=== PATIENT | female | born 1965 | race Caucasian/White ===

== ENCOUNTER 2018-01-23 04:29 | Inpatient (IN) | payer OTHER, MEDICARE ==
[~2018-01-23] VITALS: Ht 165.1 cm; Wt 87.7 kg
[~2018-01-23 04:29] MED LIST: HYDR-3129 PO; IMIT25TA PO; LISI-363 PO; METH5SOL3 PO; NAPR250T57 PO; ZOLO50TA PO
[2018-01-23 04:55] VITALS: BP 125/75; PULSE 70; RESP 18; O2SAT 99
[2018-01-23] MEDS ORDERED: ALPR.5 PO (07:33)
[2018-01-23] MEDS ORDERED: PERC10TA27 PO (07:33)
[2018-01-23] MEDS ORDERED: METH10TA PO (07:33)
[2018-01-23] MEDS ORDERED: FLUT50SP EACH NARE (07:35)
[2018-01-23] MEDS ORDERED: PROM12.54 PO (07:36)
[2018-01-23] MEDS ORDERED: LISI-515 PO (07:37)
[2018-01-23] MEDS ORDERED: NAPR500T2 PO (07:37)
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
[2018-01-23] MEDS: FLUTICASONE PROPIONATE 50 MCG/ACT 16 GM NASAL SPRAY EACH NARE SCH ×2 (09:39→20:22)
[2018-01-23] MEDS ORDERED: METHADONE HCL 10 MG TAB PO SCH (10:00)
--- NOTE | 2018-01-23 11:30 | PD.CONS ---
HPI Service [facility] Hospitalists Consult Requested By Reason for Consult Medical management, pain management Primary Care Physician Unknown Diagnoses: History of Present Illness 52-year-old female who presented to [facility] ER under [facility] act due to increased depression and plans of overdosing with pills. Chart reviewed, according to [facility] documentation patient had been taking methadone from 4811-0530, gradually weaned down from 40 mg to 10 mg. She has a past medical history of chronic back pain, knee pain, and RLS for which she has taken oxycodone and methadone in the past. Patient verbalized to ED providers at [facility] that she had "stockpiled a large amount of this medication and will use it to overdose if she is not given help". Patient reported to [facility] providers that she would not be willing to deal with life if she could not get methadone since this is only thing that helps her restless legs. Patient was cleared medically and transferred to [place] for further psychiatric evaluation. [facility] has been consulted to assist with medical management and pain management. Her methadone has been restarted by the attending psychiatrist. Patient it seen and examined in her room resting comfortably in bed in no acute distress. She is awake and alert and complains of allergies and a stuffy nose. She denies any fevers, chills, N/V/D, headache, dizziness, SOB, cough, or chest pain. She reports that she has not been in to see a doctor in some time. She reports having a spinal cord stimulator in place , was following with neurosurgery, but it has been years since she has followed up. She is able to provide me with her PMH, unsure how reliable she is. Review of Systems Except as stated in HPI: all other systems reviewed are Neg Past Family Social History Allergies: Coded Allergies: cephalexin (Unverified Allergy, Intermediate, BLOOD BLISTERS, 04/06/17) NSAIDS (Non-Steroidal Anti-Inflamma (Unverified Allergy, Unknown, 01/23/18) Past Medical History Degenerative disc disease Spinal stenosis Fibromyalgia Arthritis "all over" Chronic back pain RLS HTN HLD Past Surgical History Spinal cord stimulator 2007 Left elbow surgery bunion removal x2 Hysterectomy Reported Medications Reported Meds & Active Scripts Active Reported Lisinopril 20 Mg Tab 20 Mg PO DAILY Naproxen 500 Mg Tab 500 Mg PO BID Promethazine (Promethazine HCl) 12.5 Mg Tab 25 Mg PO Q6HR PRN Fluticasone Nasal [place] 50 Mcg/Act Naspr 50 Mcg EACH NARE BID 50 mcg/spray Xanax (Alprazolam) 0.5 Mg Tab 0.5 Mg PO HS Methadone (Methadone HCl) 10 Mg Tab 20 Mg PO DAILY Percocet (Oxycodone-Acetaminophen) 10-325 mg Tab 1-2 Tab PO Q6H PRN Active Ordered Medications Current Medications Medications (Trade) Dose Ordered Sig/[place] Route Start Time Stop Time Status Last Admin (Flonase [place] Spr) 1 spray BID EACH NARE 01/23/18 10:00 (Prinivil) 20 mg DAILY PO 01/24/18 09:00 (Dolophine) 20 mg DAILY PO 01/23/18 10:00 01/23/18 09:39 (Naprosyn) 500 mg BID PO 01/23/18 21:00 (Atarax) 50 mg Q6H PRN PO 01/23/18 12:30 (Benadryl) 50 mg HS PRN PO 01/23/18 12:30 (Benadryl Inj) 50 mg HS PRN IM 01/23/18 12:30 (Tylenol) 650 mg Q4H PRN PO 01/23/18 12:30 (Milk Of Magnesia Liq) 30 ml DAILY PRN PO 01/23/18 12:30 (Mag-Al Plus Susp Liq) 30 ml Q6H PRN PO 01/23/18 12:30 (Habitrol 21 Mg Patch.24 Hr) 1 patch DAILY T-DERMAL 01/23/18 13:00 Miscellaneous Information 1 HS T-DERMAL 01/23/18 21:00 Family History Mother: Renal cancer Social History Denies any tobacco or illicit drug use Alcohol: socially Physical Exam Vital Signs Vital Signs Date Time Temp Pulse Resp B/P (MAP) Pulse Ox O2 Delivery O2 Flow Rate FiO2 01/23/18 04:55 70 18 125/75 (92) 99 Physical Exam GENERAL: This is a well-nourished, well-developed patient, in NAD, tearful at one point. SKIN: No rashes, ecchymoses or lesions. Cool and dry. HEAD: Atraumatic. Normocephalic. EYES: Pupils equal round. Extraocular motions intact. No scleral icterus. No injection or drainage. ENT: Nose without bleeding. Throat without erythema. Airway patent. NECK: Trachea midline. No JVD. Supple. CARDIOVASCULAR: Regular rate and rhythm without murmurs, gallops, or rubs. RESPIRATORY: Clear to auscultation. Breath sounds equal bilaterally. No wheezes , rales, or rhonchi. GASTROINTESTINAL: Abdomen soft, non-tender, nondistended. No palpable masses. No guarding. MUSCULOSKELETAL: Extremities without clubbing, cyanosis, or edema. No joint tenderness, effusion, or edema noted. Sits up on bed with no assistance or hesitancy. NEUROLOGICAL: Awake and alert. Cranial nerves grossly intact. Motor and sensory grossly within normal limits. Five out of 5 muscle strength in all muscle groups. Normal speech. Assessment and Plan Assessment and Plan 52-year-old female BA after making statements that including OD on Rx medications. Seen and evaluated at [facility], cleared medically and brought to [place] for further psychiatric evaluation. Reports PMH significant for HTN, HLD, DDD, spinal stenosis, fibromyalgia, arthritis, RLS, and implanted spinal cord stimulator. Adjustment disorder - Treatment per psych HTN, controlled HLD - [place] medical records reviewed, Labs from 12/23 reviewed CBC unremarkable, slight leukocytosis at 11.3, likely stress-induced. CMP unremarkable - Continue lisinopril Chronic pain DDD OA - Methadone was continued by psychiatrist. Continue Naproxen BID. - Patient reports not seeing a doctor for sometime, unable to provide name of prescribing MD for pain medications. - She has also collected a large amount of these medications, would not DC on any pain medications. - Toxicology screen positive for methadone and cannabis, at [facility]. DVT prophylaxis-ambulation Discussed with nursing staff. Thank you for this consultation, will continue to follow along. Likely sign off tomorrow unless there are are other issues that arise. patient was seen and examined today. complaining of some back pain. started on Methadone by psych. d/w the RN and no acute issues reported. assessment and plan as noted above. Gracy Almaguer Jan 23, 2018 11:30 Anni Talavera MD Jan 23, 2018 15:04
[2018-01-23] MEDS ORDERED: ALBUTEROL SULFATE 90 MCG/ACT HFA 8 GM INHALER INH PRN (11:45)
[2018-01-23] MEDS ORDERED: diphenhydrAMINE HCL 50 MG CAP - HS PRN PO (12:30)
[2018-01-23] MEDS ORDERED: ACETAMINOPHEN 325 MG TAB PO PRN (12:30)
[2018-01-23] MEDS ORDERED: MAGNESIUM HYDROXIDE SUSP 30 ML CUP PO PRN (12:30)
[2018-01-23] MEDS ORDERED: diphenhydrAMINE HCL 50 MG/ML VIAL - HS PRN IM (12:30)
[2018-01-23] MEDS ORDERED: hydrOXYzine HCL 50 MG TAB PO PRN (12:30)
[2018-01-23] MEDS ORDERED: ALUMINUM/MAGNESIUM/SIMETH 30 ML CUP PO PRN (12:30)
[2018-01-23] MEDS: NICOTINE 21 MG/24 HR PATCH T-DERMAL SCH (12:46)
[2018-01-23 16:00] VITALS: BP 125/75; PULSE 70; RESP 18; TEMP 98.6; O2SAT 99
[2018-01-23] MEDS: NAPROXEN 500 MG TAB PO SCH (20:21)
[2018-01-23] MEDS: REMOVE OLD NICOTINE PATCH T-DERMAL SCH (20:23)
[2018-01-24 06:30] VITALS: BP 136/78; PULSE 54; RESP 17; TEMP 97.6; O2SAT 97
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
[2018-01-24] MEDS: LISINOPRIL 20 MG TAB PO SCH (08:36)
[2018-01-24] MEDS: NAPROXEN 500 MG TAB PO SCH ×2 (08:36→20:41)
[2018-01-24] MEDS: FLUTICASONE PROPIONATE 50 MCG/ACT 16 GM NASAL SPRAY EACH NARE SCH ×2 (08:36→20:41)
[2018-01-24] MEDS: NICOTINE 21 MG/24 HR PATCH T-DERMAL SCH (09:00)
[2018-01-24] MEDS: METHADONE HCL 10 MG TAB PO SCH (09:00)
[2018-01-24] MEDS: SERTRALINE HCL 50 MG TAB PO SCH (09:19)
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
[2018-01-24 18:16] VITALS: BP 113/62; PULSE 58; RESP 16; TEMP 98; O2SAT 95
[2018-01-24] MEDS: REMOVE OLD NICOTINE PATCH T-DERMAL SCH (20:42)
[2018-01-25] MEDS: SERTRALINE HCL 50 MG TAB PO SCH (08:43)
[2018-01-25] MEDS: NAPROXEN 500 MG TAB PO SCH (08:43)
[2018-01-25] MEDS: LISINOPRIL 20 MG TAB PO SCH (08:43)
[2018-01-25] MEDS: FLUTICASONE PROPIONATE 50 MCG/ACT 16 GM NASAL SPRAY EACH NARE SCH (08:44)
[2018-01-25] MEDS: METHADONE HCL 10 MG TAB PO SCH (08:44)
[2018-01-25] MEDS: NICOTINE 21 MG/24 HR PATCH T-DERMAL SCH (08:44)
[2018-01-25 09:12] LABS: ALBUMIN 4.1 GM/DL (3.4-5.0); AST (GOT) 18 U/L (15-37); BICARBONATE 24.6 MEQ/L (21.0-32.0); BLOOD UREA NITROGEN 13 MG/DL (7-18); CALCIUM 10.7 MG/DL (8.5-10.1); CHLORIDE 107 MEQ/L (98-107); CREATININE 0.72 MG/DL (0.50-1.00); GLOMERULAR FILTRATION RATE 85 ML/MIN (>89); GLUCOSE,RANDOM 104 MG/DL (74-106); SODIUM (NA) 141 MEQ/L (136-145)
[2018-01-25 09:13] LABS: ALT (GPT) 29 U/L (10-53); CHOLESTEROL 240 MG/DL (120-200)
[2018-01-25 09:17] LABS: AUTOMATED NEUTROPHIL # 3.5 TH/MM3 (1.8-7.7); BASOPHIL % 0.6 % (0.0-2.0); EOSINOPHIL # 0.1 TH/MM3 (0-0.4); EOSINOPHIL % 1.5 % (0.0-4.0); HEMATOCRIT 40.3 % (35.0-46.0); HEMOGLOBIN 13.5 GM/DL (11.6-15.3); LYMPH % 40.1 % (9.0-44.0); LYMPHOCYTE # 2.8 TH/MM3 (1.0-4.8); MEAN CORPUSCULAR HEMOGLOBIN 28.6 PG (27.0-34.0); MEAN CORPUSCULAR HGB CONC 33.6 % (32.0-36.0); MEAN PLATELET VOLUME 7.9 FL (7.0-11.0); MONO % 7.9 % (0.0-8.0); MONOCYTE # 0.6 TH/MM3 (0-0.9); NEUT % 49.9 % (16.0-70.0); PLATELET COUNT 224 TH/MM3 (150-450); RED BLOOD COUNT 4.74 MIL/MM3 (4.00-5.30); RED CELL DISTRIBUTION WIDTH 12.6 % (11.6-17.2); WHITE BLOOD COUNT 7.1 TH/MM3 (4.0-11.0)
[2018-01-25 09:23] LABS: ALKALINE PHOSPHATASE 158 U/L (45-117); CHOLESTEROL/ HDL RATIO 2.98 RATIO; HDL CHOLESTEROL 80.3 MG/DL (40.0-60.0); LDL CHOLESTEROL 143 MG/DL (0-99); TOTAL BILIRUBIN ADULT 0.4 MG/DL (0.2-1.0); TOTAL PROTEIN 7.5 GM/DL (6.4-8.2); TRIGLYCERIDES 83 MG/DL (42-150)
--- NOTE | 2018-01-25 10:20 | PD.TTN ---
Patient Problems 1. Discharge planning 2. Medication compliance 3. Knowledge deficit 4. Lack of coping skills Progress Toward Goals Provider Present: Dr. Gavi York Provider Input: Dr. York's had his treatment team meeting to discuss patient's discharge, medication and treatment plan. Patient is being referred to [facility] for treatment. Patient was started on Zoloft. Nurse(s) Input: Patient's nurse reports patient had poor intake today. Presents depressed, tearful, pleasant, cooperative, compliant with meds. Psychiatric Counselors Present: Shaye Payne [facility] Psych Therapist Input: Patient presents Group Spec/RT/OT/SAN Present: MENA Rendon Group Spec/RT/OT/SAN Input: Patient refused to come to group. Shaye Payne [facility] Jan 25, 2018 10:20
[2018-01-25] MEDS ORDERED: ZOLO50TA PO (11:14)
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
[2018-01-25 16:58] LABS: HEMOGLOBIN A1C 5.3 % (4.3-6.0)
== END 2018-01-25 13:50 | disposition left against medical advice (07) | DRG 883 ==
LOC: H270 04:55 → H260 01-24 09:48
PROVIDERS: ADMIT Psychiatry & Neurology Psychiatry; ATTEND Psychiatry & Neurology Psychiatry
DX: F60.3 Borderline personality disorder (principal); R45.851 Suicidal ideations; Z91.14 Patient's other noncompliance with medication regimen; F43.25 Adjustment disorder with mixed disturbance of emotions and conduct; F15.10 Other stimulant abuse, uncomplicated; F12.10 Cannabis abuse, uncomplicated; F10.10 Alcohol abuse, uncomplicated; G25.81 Restless legs syndrome; M48.00 Spinal stenosis, site unspecified; M79.7 Fibromyalgia; M15.9 Polyosteoarthritis, unspecified; I10 Essential (primary) hypertension; E78.5 Hyperlipidemia, unspecified; Z59.0 Homelessness; Z62.810 Personal history of physical and sexual abuse in childhood; Z88.1 Allergy status to other antibiotic agents; Z91.5 Personal history of self-harm; Z81.8 Family history of other mental and behavioral disorders
CPT/HCPCS: 80053; 80061; 83036; 84443; 85025